=== PATIENT | female | born 1965 | race Caucasian/White ===

== ENCOUNTER 2020-07-25 10:24 | Outpatient (CLI) | payer OTHER ==
--- OUTSIDE RECORDS SUMMARY | 2020-08-01 23:08 | EXTERNAL MEDICAL SUMMARY RPT | Continuity of Care Document ---
:1965 Demographics Phone Unavailable Preferred Language Unknown Marital Status Unknown Spiritism Affiliation Unknown Race Unknown Ethnic Group Unknown Author Organization [facility] Address [address] [place] [address] Phone Social History date description facility [phone]
== END 2020-07-25 10:25 | disposition home or self-care (01) ==
LOC: EMS 10:24
DX: S01.81XA Laceration without foreign body of other part of head, initial encounter (principal); S00.81XA Abrasion of other part of head, initial encounter; W10.8XXA Fall (on) (from) other stairs and steps, initial encounter; Y93.89 Activity, other specified; Y92.009 Unspecified place in unspecified non-institutional (private) residence as the place of occurrence of the external cause
CPT/HCPCS: A0425; A0429

== ENCOUNTER 2020-07-25 10:41 | Emergency (ER) | payer OTHER ==
--- NOTE | 2020-07-25 10:49 | ED Physician Documentation ---
PD HPI Fall - Stated complaint Stated Complaint: FALL/HEAD INJURY - History obtained from History obtained from: Patient - History of Present Illness Mechanism of injury: Tripped Fall distance: Standing position Where injury occurred: Home Timing - onset: Today Injury(ies) location: Head, Neck Quality of pain: Throbbing Associated symptoms: Neck pain, Nausea / vomiting. No: LOC, AMS Symptoms improve with: Rest Worsens with: Movement, Palpation Similar symptoms before: Has not had sx before Recently seen: Not recently seen - Additional information Additional information: 55-year-old female has recently changed to night shifts and is a bit sleepy she went to go down her steps this afternoon and she had a boil in her hand and no side rail she missed a step and she tumbled down 16 steps. She did not have loss of consciousness and she complains mostly of pain to the anterior forehead where there is an abrasion and to her neck. She denies any numbness tingling or weakness but she does have some nausea. Review of Systems Constitutional: denies: Fever Eyes: denies: Decreased vision, Photophobia Ears: denies: Loss of hearing, Ear pain Nose: denies: Rhinorrhea / runny nose, Congestion Throat: denies: Sore throat Cardiac: denies: Chest pain / pressure, Palpitations Respiratory: denies: Dyspnea, Cough GI: reports: Nausea. denies: Vomiting PD PAST MEDICAL HISTORY - Present Medications Home Medications: Ambulatory Orders Medication Instructions Recorded Confirmed Cyclobenzaprine [Flexeril] 10 mg PO TID PRN #20 tablet 07/25/20 Levothyroxine Sodium [Synthroid] 50 mcg PO DAILY 07/25/20 07/25/20 Liothyronine Sodium [Cytomel] 50 mcg PO DAILY 07/25/20 07/25/20 metFORMIN [Glucophage] 100 mg PO BID 07/25/20 07/25/20 - Allergies Allergies/Adverse Reactions: Allergies Allergy/AdvReac Type Severity Reaction Status Date / Time Sulfa (Sulfonamide Allergy Unknown Verified 07/25/20 11:14 Antibiotics) PD ED PE NORMAL - General General: Alert and oriented X 3, No acute distress, Well developed/nourished - HEENT HEENT: PERRL, EOMI, Other (There is a central abrasion to the upper forehead that goes into the hairline and there is an abrasion to the right cheek.) - Neck Neck: Supple, no meningeal sign, No bony TTP, Other (There is pain to the paraspinous muscles on the right side and pain with any movement.) - Cardiac Cardiac: RRR, No murmur - Respiratory Respiratory: No respiratory distress, Clear bilaterally - Abdomen Abdomen: Soft, Non tender - Back Back: No CVA TTP, No spinal TTP - Derm Derm: Normal color, Warm and dry, No rash - Extremities Extremities: No deformity, No edema - Neuro Neuro: Alert and oriented X 3, 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, No motor deficit, No sensory deficit, Normal speech Eye Opening: Spontaneous Motor: Obeys Commands Verbal: Oriented GCS Score: 15 - Psych Psych: Normal mood, Normal affect Results - Vitals Vitals: Vital Signs - 24 hr 07/25/20 07/25/20 07/25/20 10:42 11:05 11:35 Temperature 36.0 C L Heart Rate 56 L 51 L 52 L Respiratory 14 16 12 Rate Blood Pressure 146/67 H 119/68 132/56 H O2 Saturation 100 100 99 07/25/20 07/25/20 12:00 12:29 Temperature Heart Rate 60 52 L Respiratory 13 18 Rate Blood Pressure 116/55 L 113/56 L O2 Saturation 100 100 Oxygen O2 Source Room air - Rads (name of study) CT head Radiology: Prelim report reviewed (Impression: No acute intracranial disease process.), EMP read indepedently, See rad report Cervical spine Radiology: Prelim report reviewed (Impression: No fracture. No acute osseous lesion. If there is continued clinical concern for pathology, then MRI should be considered for further evaluation.), EMP read indepedently, See rad report PD MEDICAL DECISION MAKING - ED course Complexity details: reviewed results, re-evaluated patient, considered differential, d/w patient ED course: Previously well 55-year-old female with a fall down 16 steps. She has had a concussion without loss of consciousness she is some mild nausea and headache. She has some pain in her neck. Imaging is without evidence of fracture or hemorrhage. Departure - Departure Disposition: 01 Home, Self Care Clinical Impression: Concussion Qualifiers: Encounter type: initial encounter Loss of consciousness presence/duration: without LOC Qualified Code(s): S06.0X0A - Concussion without loss of consciousness, initial encounter Cervical strain, acute Qualifiers: Encounter type: initial encounter Qualified Code(s): S16.1XXA - Strain of muscle, fascia and tendon at neck level, initial encounter Condition: Stable Instructions: ED Concussion, ED Sprain Strain Neck Follow-Up: JOSE WILLETT ND [Primary Care Provider] - Prescriptions: Cyclobenzaprine [Flexeril] 10 mg PO TID PRN #20 tablet PRN Reason: Spasms Forms: Activity restrictions Discharge Date/Time: 07/25/20 13:09
[2020-07-25] MEDS ORDERED: ONDANSETRON ODT 4 MG TABLET TL STA (11:20)
[2020-07-25] MEDS ORDERED: IBUPROFEN 600 MG TABLET PO STA (11:54)
--- NOTE | 2020-07-25 12:00 | CT Report ---
PROCEDURE: HEAD WO INDICATIONS: fall anterior contusion nausea TECHNIQUE: Noncontrast 4.5 mm thick angled axial sections acquired from the foramen magnum to the vertex. For r adiation dose reduction, the following was used: automated exposure control, adjustment of mA and/or kV according to patient size. COMPARISON: None. FINDINGS: Image quality: Excellent. CSF spaces: Basal cisterns are patent. No extra-axial fluid collections. Ventricles are normal in size and shape. Brain: No midline shift. No intracranial masses or hemorrhage. Lanza-white matter interface is norm al. Skull and face: Calvarium and visualized facial bones are intact, without suspicious lesions. Sinuses: Visualized sinuses and mastoids are clear. IMPRESSION: No acute intracranial disease process. Reviewed by: Apryl Maldonado MD, PhD on 07/25/2020 11:58 AM PDT Approved by: Apryl Maldonado MD, PhD on 07/25/2020 11:58 AM PDT Station ID: [id number]
--- NOTE | 2020-07-25 12:06 | CT Report ---
PROCEDURE: CERVICAL SPINE WO INDICATIONS: fall 16 steps head injury neck pain TECHNIQUE: Noncontrast 3 mm thick sections acquired from the skull base to the T4 level. Sagittal and coronal r eformats were then constructed. For radiation dose reduction, the following was used: automated exp osure control, adjustment of mA and/or kV according to patient size. COMPARISON: None. FINDINGS: Image quality: Excellent. Bones: No fractures or dislocations. Visualized superior ribs are intact. Spine degenerative disc d isease and facet arthropathy are noted. Soft tissues: Prevertebral soft tissues are normal in thickness. No paravertebral hematomas. No ap ical pneumothoraces. IMPRESSION: No fracture. No acute osseous lesion. If there is continued clinical concern for pathology, then MRI should be considered for further evaluation. Reviewed by: Apryl Maldonado MD, PhD on 07/25/2020 12:05 PM PDT Approved by: Apryl Maldonado MD, PhD on 07/25/2020 12:05 PM PDT Station ID: [id number]
[2020-07-25 12:29] VITALS: BP 113/56
== END 2020-07-25 13:09 | disposition home or self-care (01) ==
LOC: EDUNIT# → ED 10:41
DX: S06.0X0A Concussion without loss of consciousness, initial encounter (principal); S16.1XXA Strain of muscle, fascia and tendon at neck level, initial encounter; S00.81XA Abrasion of other part of head, initial encounter; W10.8XXA Fall (on) (from) other stairs and steps, initial encounter; Y93.01 Activity, walking, marching and hiking; Y92.009 Unspecified place in unspecified non-institutional (private) residence as the place of occurrence of the external cause
CPT/HCPCS: 70450; 72125; 99284; A9270; Q0162

== ENCOUNTER 2021-03-29 06:51 | Outpatient (CLI) | payer OTHER | END 2021-03-29 06:52 | disposition critical access hospital (66) | LOC: EMS 06:51 | DX: M25.561 Pain in right knee (principal) | CPT/HCPCS: A0425; A0429 ==

== ENCOUNTER 2021-03-29 07:09 | Emergency (ER) | payer OTHER ==
[2021-03-29 07:21] VITALS: BP 115/58
--- NOTE | 2021-03-29 08:09 | ED Physician Documentation ---
PD HPI LOWER EXT INJURY - Stated complaint Stated Complaint: KNEE PX - Chief complaint Chief Complaint: Trauma Ext - History obtained from History obtained from: Patient - Additional information Additional information: Patient comes emergency department chief complaint of right knee injury yesterday. She states she was going on the stairs at home and that upon reaching the bottom step, she stepped down with her right foot and as she planted it and began to extend, she felt a sudden pop in the back of her knee and pain. She states her knee buckled and she went down on her hands and knees. Patient was not injured in any other way. She states that the leg has been painful overnight especially if she straightens it. However, she states that she is standing up, and feels good to have the leg completely straight. While laying down, flexion is more comfortable. Patient does note that she has problems with her low back that are chronic and does see physical therapy for this. She also states that since the injury yesterday, she has been limping and favoring the right leg. Millan she has pain shooting all up and down the leg. She was not having any trouble with the knee or that extremity prior to this injury. No other complaints at this time. Review of Systems Ten Systems: 10 systems reviewed and negative Constitutional: reports: Reviewed and negative Eyes: reports: Reviewed and negative Ears: reports: Reviewed and negative Nose: reports: Reviewed and negative Throat: reports: Reviewed and negative Cardiac: reports: Reviewed and negative Respiratory: reports: Reviewed and negative GI: reports: Reviewed and negative : reports: Reviewed and negative Skin: reports: Reviewed and negative Musculoskeletal: reports: Extremity pain, Joint pain. 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 INTEGRATOR: Breast reduction Cardiovascular: Coronary stent - Present Medications Home Medications: Ambulatory Orders Medication Instructions Recorded Confirmed Cyclobenzaprine [Flexeril] 10 mg PO TID PRN #20 tablet 07/25/20 Levothyroxine Sodium [Synthroid] 50 mcg PO DAILY 07/25/20 07/25/20 Liothyronine Sodium [Cytomel] 50 mcg PO DAILY 07/25/20 07/25/20 metFORMIN [Glucophage] 100 mg PO BID 07/25/20 07/25/20 - Allergies Allergies/Adverse Reactions: Allergies Allergy/AdvReac Type Severity Reaction Status Date / Time Sulfa (Sulfonamide Allergy Unknown Verified 07/25/20 11:14 Antibiotics) - Social History Does the pt smoke?: No Smoking Status: Never smoker Does the pt drink ETOH?: No Does the pt have substance abuse?: No - Immunizations Immunizations are current?: Yes - POLST Patient has POLST: No PD ED PE NORMAL - Vitals Vital signs reviewed: Yes - General General: Alert and oriented X 3, No acute distress, Well developed/nourished - HEENT HEENT: Atraumatic, PERRL, EOMI, Moist mucous membranes - Neck Neck: Supple, no meningeal sign - Cardiac Cardiac: Strong equal pulses - Respiratory Respiratory: No respiratory distress - Derm Derm: Normal color, Warm and dry, No rash - Extremities Extremities: No deformity, No edema, Other (Tenderness in the popliteal area without mass or edema. No contusion/ecchymosis. 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 ) PD MEDICAL DECISION MAKING - ED course Complexity details: reviewed results, re-evaluated patient, considered differential, d/w patient ED course: X-ray series was negative. I have discussed with the patient that her symptoms are most consistent with a soft tissue strain. We have discussed symptomatic management, and that the symptoms will be self-limited generally. I discussed with the patient that she does not feel any better in the next couple weeks, she may follow-up with her primary doctor to discuss whether MRI would be helpful. The onset of symptoms does not indicate a DVT. 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 We discussed anti-inflammatories, ice, heat, elevation, stretching, and range of motion exercises at home. Patient has been given a pair of crutches.
--- NOTE | 2021-03-29 08:24 | XRAY Report ---
PROCEDURE: Knee 3 View RT INDICATIONS: injury/pain TECHNIQUE: 3 views of the right knee(s) were acquired. COMPARISON: None. FINDINGS: BONES/JOINT: No acute, displaced fracture or dislocation. Small suprapatellar joint effusion.Minimal tricompartment osteophytosis. SOFT TISSUES: No significant abnormality. IMPRESSION: 1.No acute osseous abnormality. Reviewed by: Ricardo Lauren MD on 03/29/2021 8:22 AM RUST Approved by: Ricardo Lauren MD on 03/29/2021 8:22 AM RUST Station ID: [id number]
== END 2021-03-29 09:04 | disposition home or self-care (01) ==
LOC: EDUNIT# → ED 07:09
DX: S83.91XA Sprain of unspecified site of right knee, initial encounter (principal); X50.1XXA Overexertion from prolonged static or awkward postures, initial encounter; Y93.01 Activity, walking, marching and hiking; Y92.009 Unspecified place in unspecified non-institutional (private) residence as the place of occurrence of the external cause; E11.9 Type 2 diabetes mellitus without complications; Z79.84 Long term (current) use of oral hypoglycemic drugs
CPT/HCPCS: 99282; 99283

== ENCOUNTER 2022-10-09 10:38 | Emergency (ER) | payer OTHER ==
[2022-10-09 11:15] LABS: BASOPHILS % (AUTO) 0.4 %; EOSINOPHILS # (AUTO) 0.2 10^3/uL (0.0-0.7); EOSINOPHILS % (AUTO) 2.7 %; HCT - HEMATOCRIT 40.1 % (37.0-47.0); HGB - HEMOGLOBIN 12.9 g/dL (12.0-16.0); LYMPHOCYTES # (AUTO) 1.9 10^3/uL (1.5-3.5); LYMPHOCYTES % (AUTO) 32.8 %; MEAN CORPUSCULAR HGB CONC 32.2 g/dL (32.0-36.0); MEAN CORPUSCULAR VOLUME 93.3 fL (81.0-99.0); MEAN PLATELET VOLUME 10.1 fL (7.9-10.8); MONOCYTES # (AUTO) 0.5 10^3/uL (0.0-1.0); MONOCYTES % (AUTO) 8.7 %; NEUTROPHILS # (AUTO) 3.1 10^3/uL (1.5-6.6); NEUTROPHILS % (AUTO) 55.2 %; PLT - PLATELET COUNT 287 10^3/uL (130-450); RED CELL DISTRIBUTION WIDTH 12.7 % (12.0-15.0); WHITE BLOOD COUNT 5.6 x10^3/uL (4.8-10.8)
[2022-10-09 11:25] LABS: ALBUMIN 3.9 g/dL (3.2-5.5); ALBUMIN/GLOBULIN RATIO 1.4 (1.0-2.2); BILIRUBIN,TOTAL 0.5 mg/dL (0.2-1.0); CALCIUM 9.3 mg/dL (8.5-10.3); CREATININE 0.6 mg/dL (0.4-1.0); TOTAL PROTEIN 6.7 g/dL (6.7-8.2)
--- NOTE | 2022-10-09 11:29 | XRAY Report ---
PROCEDURE: Chest 1 View X-Ray INDICATIONS: Chest pain TECHNIQUE: One view of the chest was acquired. COMPARISON: None. FINDINGS: Surgical changes and devices: None. Lungs and pleura: No pleural effusions or pneumothorax. Lungs are clear. Mediastinum: Mediastinal contours appear normal. Heart size is normal. Bones and chest wall: No suspicious bony lesions. Overlying soft tissues appear unremarkable. IMPRESSION: No acute cardiopulmonary process. Reviewed by: Malki Bryson MD on 10/09/2022 11:27 AM PDT Approved by: Malik Bryson MD on 10/09/2022 11:27 AM PDT Station ID: [id number]
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
[2022-10-09 14:07] VITALS: BP 133/62
== END 2022-10-09 14:11 | disposition home or self-care (01) ==
LOC: ED 10:38
DX: R07.89 Other chest pain (principal); F43.9 Reaction to severe stress, unspecified; E11.9 Type 2 diabetes mellitus without complications; Z79.84 Long term (current) use of oral hypoglycemic drugs
CPT/HCPCS: 36415; 80053; 83690; 84484; 85025; 93005; 99284